=== PATIENT | male | born 1940 | race Caucasian/White ===

== ENCOUNTER 2020-12-19 13:30 | Inpatient (IN) | payer OTHER, BC ==
[~2020-12-19] VITALS: Ht 188 cm; Wt 93.0 kg
[~2020-12-19 13:30] MED LIST: ACETAMINOPHEN325 M1 PO; ACYCLOVIR 400400 MG PO; ASPIR 8181 MG PO; BENTYL 20 MG TA20 M1 PO; BRILINTA90 MG PO; CARAFATE1 GM PO; CEFDINIR300 MG PO; CENTRUM SILVER1 EAC4 PO; CLONAZEPAM 0.50.5 M1 PO; COZAAR 25 MG TA25 M1 PO; DILAUDID 2 MG TA2 MG PO; EFFIENT10 MG PO; ELIQUIS2.5 MG PO; ELIQUIS5 MG PO; GABAPENTIN 100100 MG PO; HEPARIN SO1000 UNIT/ IVPUSH; IBU800 MG PO; KLONOPIN0.5 MG PO; LEVAQUIN 750 M750 MG PO; LIPITOR 20 MG T20 M1 PO; LISINOPRIL20 MG PO; MELATONIN3 MG PO; MELATONIN5 MG SUBLING; METOPROLOL TART25 MG PO; MUCINEX600 MG PO; NEURONTIN 300M300 M2 PO; NORCO 5-325 TA1 EACH PO; NORVASC10 MG PO; OMEPRAZOLE40 MG PO; OXYCODONE HCL 55 MG PO; PRILOSEC OTC20 MG PO; PRILOSEC20 MG PO; PROBIOTIC1 EAC2 PO; SINGULAIR 10 MG10 M1 PO; TRAMADOL 50 MG50 MG PO; VENTOLIN HFA 1818 GM INH; VITAMIN B-12500 MCG PO
[2020-12-19 18:29] VITALS: BP 126/63
--- NOTE | 2020-12-19 19:20 | NUR ---
PT A DIRECT ADMIT FROM [facility]. ADMISSION HX AND ASSESSMENT COMPLETED. PT ALERT AND ORIENTED. VSS. REPORT HAVING SOME CHEST DISCOMFORT. SR ON TELE. SEEN BY DR. KEMP. NEW ORDERS NOTED. NO CONCERNS AT THIS TIME.
[2020-12-19 19:47] LABS: HEMOGLOBIN 12.9 gm/dL (14.0-18.0); MCH 30.5 pg (26.0-34.0); MCV 92.3 fL (80.0-100.0); RBC 4.23 mil/uL (4.50-6.00); RDW 14.5 % (10.5-14.5); WBC 4.2 thou/uL (4.0-11.0)
[2020-12-19 19:52] LABS: INR 1.1
[2020-12-19 20:06] LABS: CHOLESTEROL 128 mg/dL (<200); HDL CHOLESTEROL 39 mg/dL (>40); LDL CHOLESTEROL 71 mg/dL (<100); TC:HDL 3.3 Ratio (Not establshd); TRIGLYCERIDE 92 mg/dL (<150); VLDL 18 mg/dL (<40)
[2020-12-19 20:24] LABS: SERUM ASSESSMENT Clear
[2020-12-19 20:30] VITALS: BP 135/61
[2020-12-19 22:20] LABS: FOLIC ACID 39.2 ng/mL (8.6-58.9)
[2020-12-20 05:10] VITALS: BP 140/72
[2020-12-20 05:30] LABS: CALCIUM 8.9 mg/dL (8.5-10.1); CREATININE 1.1 mg/dL (0.7-1.3); POTASSIUM 3.7 mmol/L (3.5-5.1)
[2020-12-20 05:44] LABS: HEMATOCRIT 38.4 % (42.0-52.0); HEMOGLOBIN 12.7 gm/dL (14.0-18.0); MCH 30.4 pg (26.0-34.0); RBC 4.17 mil/uL (4.50-6.00); RDW 14.2 % (10.5-14.5); WBC 4.5 thou/uL (4.0-11.0)
--- NOTE | 2020-12-20 07:22 | NUR ---
PER CHART REVIEW, PT. IS SCHEDULED FOR CABG Sunday12/21/2020. WILL WAIT TO EVALUTE PT. UNTIL AFTER ORDERS RECEIVED POST CABG.
[2020-12-20 07:48] VITALS: BP 138/66
--- NOTE | 2020-12-20 09:04 | NUR ---
ON HEPARIN GTT,COMPLAIN OF CHEST PRESSURE,NITRO SL GIVEN.VERBALIZED LITTLE RELIEF.POC CONTINUED.
[2020-12-20] MEDS ORDERED: LIPITOR40 MG PO (10:20)
[2020-12-20 11:26] VITALS: BP 135/64
--- NOTE | 2020-12-20 13:59 | EKG ---
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 : 1940 Requested By: Urbano Huber Order Number: [id number] : Rodrigo [place] Measurements Intervals [place] Rate: 68 P: 54 [place]: 184 QRS: -22 QRSD: 103 T: 162 QT: 407 QTc: 433 Interpretive Statements Sinus rhythm Borderline left axis deviation Low voltage, precordial leads Probable anteroseptal infarct, old Nonspecific T abnormalities, lateral leads No previous ECG available for comparison Electronically Signed On 12-20-2020 13:59:21 CLAMP TRUCK DRIVER by Rodrigo Wilhelm [email or web address] <ELECTRONICALLY SIGNED> By: Rodrigo Wilhelm MD, [facility] 12/20/20 1359 1106 05 Rodrigo Wilhelm MD, FACC /EPI
[2020-12-20 15:50] VITALS: BP 154/72
[2020-12-20 19:42] VITALS: BP 148/74
[2020-12-20 19:45] VITALS: BP 155/87
[2020-12-21] VITALS (35 sets, daily range): BP systolic 98–135; BP diastolic 51–71
--- NOTE | 2020-12-21 10:13 | NUR ---
met with patient last evening. Patient resides in home with . All needs on one level. Patient reports with eye injection and cannot drive for some time. [facility] to have CABG today. Patient lives in [place]. 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 Son lives in [place] and dtr lives in [facility]. reviewed HH care. casemgt following for dc planning. Patient has no established PCP. Reports he sees Dr Aguiar on outpatient basis.
[2020-12-21 12:31] LABS: HEMATOCRIT 26.7 % (42.0-52.0); MCH 30.7 pg (26.0-34.0); MCHC 33.6 g/dL (28.0-37.0); MCV 91.3 fL (80.0-100.0); RBC 2.92 mil/uL (4.50-6.00); RDW 13.8 % (10.5-14.5); WBC 7.6 thou/uL (4.0-11.0)
[2020-12-21 12:44] LABS: FIBRINOGEN 131.9 mg/dL (210-360); INR 1.5; PROTIME 15.5 Seconds (9.3-11.4)
[2020-12-21 12:47] LABS: APTT 27.8 Seconds (24.5-32.8)
[2020-12-21 13:13] LABS: POC BE 3 mmol/L (-2.0 to +3.0); POC GLUCOSE 115 mg/dL (70-99); POC HCO3 27.6 mmol/L (22.0-26.0); POC HEMOGLOBIN 12.2 g/dL (14.0-18.0); POC POTASSIUM 3.7 mmol/L (3.5-5.1); POC SODIUM 140 mmol/L (136-145); POC pH 7.426 (7.360-7.450)
[2020-12-21 13:13] LABS: POC BE 1 mmol/L (-2.0 to +3.0); POC CA IONIZED 4.9 mg/dL (4.5-5.3); POC GLUCOSE 147 mg/dL (70-99); POC HCO3 26.9 mmol/L (22.0-26.0); POC HEMOGLOBIN 11.9 g/dL (14.0-18.0); POC SODIUM 139 mmol/L (136-145); POC pCO2 49.3 mmHg (35.0-45.0); POC pH 7.345 (7.360-7.450)
[2020-12-21 13:14] LABS: POC BE -3 mmol/L (-2.0 to +3.0); POC CA IONIZED 4.7 mg/dL (4.5-5.3); POC GLUCOSE 130 mg/dL (70-99); POC HCO3 22.2 mmol/L (22.0-26.0); POC HEMOGLOBIN 9.9 g/dL (14.0-18.0); POC POTASSIUM 3.9 mmol/L (3.5-5.1); POC SODIUM 141 mmol/L (136-145); POC pCO2 36.6 mmHg (35.0-45.0); POC pH 7.391 (7.360-7.450)
[2020-12-21 13:14] LABS: POC BE 1 mmol/L (-2.0 to +3.0); POC CA IONIZED 4.6 mg/dL (4.5-5.3); POC GLUCOSE 159 mg/dL (70-99); POC HCO3 25.3 mmol/L (22.0-26.0); POC HEMOGLOBIN 9.2 g/dL (14.0-18.0); POC POTASSIUM 4.2 mmol/L (3.5-5.1); POC SODIUM 140 mmol/L (136-145); POC pCO2 40.6 mmHg (35.0-45.0); POC pH 7.403 (7.360-7.450)
[2020-12-21 13:14] LABS: POC BE -2 mmol/L (-2.0 to +3.0); POC CA IONIZED 5.5 mg/dL (4.5-5.3); POC GLUCOSE 136 mg/dL (70-99); POC HCO3 22.7 mmol/L (22.0-26.0); POC HEMOGLOBIN 9.2 g/dL (14.0-18.0); POC POTASSIUM 3.7 mmol/L (3.5-5.1); POC SODIUM 140 mmol/L (136-145); POC pCO2 37.1 mmHg (35.0-45.0); POC pH 7.396 (7.360-7.450)
[2020-12-21 13:14] LABS: POC BE 0 mmol/L (-2.0 to +3.0); POC CA IONIZED 4.5 mg/dL (4.5-5.3); POC GLUCOSE 149 mg/dL (70-99); POC HEMOGLOBIN 9.9 g/dL (14.0-18.0); POC POTASSIUM 4.6 mmol/L (3.5-5.1); POC SODIUM 140 mmol/L (136-145); POC pH 7.414 (7.360-7.450)
[2020-12-21 13:14] LABS: POC BE 0 mmol/L (-2.0 to +3.0); POC CA IONIZED 4.3 mg/dL (4.5-5.3); POC GLUCOSE 152 mg/dL (70-99); POC HCO3 24.7 mmol/L (22.0-26.0); POC HEMOGLOBIN 9.2 g/dL (14.0-18.0); POC POTASSIUM 4.5 mmol/L (3.5-5.1); POC SODIUM 138 mmol/L (136-145); POC pCO2 36.8 mmHg (35.0-45.0); POC pH 7.434 (7.360-7.450)
[2020-12-21 13:14] LABS: POC BE 1 mmol/L (-2.0 to +3.0); POC CA IONIZED 4.6 mg/dL (4.5-5.3); POC GLUCOSE 167 mg/dL (70-99); POC HCO3 25.2 mmol/L (22.0-26.0); POC HEMOGLOBIN 9.5 g/dL (14.0-18.0); POC POTASSIUM 4.4 mmol/L (3.5-5.1); POC SODIUM 140 mmol/L (136-145); POC pCO2 39.3 mmHg (35.0-45.0); POC pH 7.416 (7.360-7.450)
[2020-12-21 14:03] LABS: HEMATOCRIT 30.3 % (42.0-52.0); HEMOGLOBIN 10.1 gm/dL (14.0-18.0); MCH 30.9 pg (26.0-34.0); MCHC 33.4 g/dL (28.0-37.0); MCV 92.6 fL (80.0-100.0); RBC 3.27 mil/uL (4.50-6.00); WBC 9.1 thou/uL (4.0-11.0)
[2020-12-21 14:08] LABS: CALCIUM 8.8 mg/dL (8.5-10.1); CREATININE 0.9 mg/dL (0.7-1.3); POTASSIUM 3.9 mmol/L (3.5-5.1)
[2020-12-21 14:09] LABS: MAGNESIUM 2.4 mg/dL (1.8-2.4)
[2020-12-21 14:18] LABS: APTT 26.1 Seconds (24.5-32.8); INR 1.2; PROTIME 11.9 Seconds (9.3-11.4)
[2020-12-21 14:26] LABS: BE(vivo) -4.3 mmol/L (-2 to +3); HCO3 21.8 mmol/L (22.0-26.0); PCO2 43.8 mmHg (35.0-45.0); PO2 126.8 mmHg (80.0-100.0); sO2 98.3 % (92.0-98.0)
[2020-12-21 14:27] LABS: pH 7.314 (7.360-7.450)
--- NOTE | 2020-12-21 16:35 | NUR ---
PT ARRIVED FROM OR TO ICU AT 1353 ACCOMPANIED BY NURSING STAFF, ANESTHESIOLOGISTS, RETORT FIREMAN, ANURAG MESSINA AND .PT WAS SEDATED ON 20MCG/KG/MIN PROPOFOL. LUDY DURAN UPDATED ON PT CONDITION AT 1530. PT LUDY WAS GIVEN ICU PHONE NUMBER AND PT PRIVACY CODE AND VISITATION POLIACY. SEDATION OFF SINCE 1445. PT STILL DROWSY AND NOT FOLLOWING ANY COMMANDS YET. PT ON AMIODARONE GTT. CONTINUE TO MONITOR.
[2020-12-21 19:21] LABS: BE(vivo) -7.4 mmol/L (-2 to +3); HCO3 17.5 mmol/L (22.0-26.0); PCO2 33.6 mmHg (35.0-45.0); PO2 81.1 mmHg (80.0-100.0); pH 7.335 (7.360-7.450); sO2 95.4 % (92.0-98.0)
[2020-12-22] VITALS (26 sets, daily range): BP systolic 81–126; BP diastolic 30–75
[2020-12-22 06:25] LABS: HEMOGLOBIN 9.7 gm/dL (14.0-18.0); MCH 30.9 pg (26.0-34.0); MCHC 33.6 g/dL (28.0-37.0); MCV 92.1 fL (80.0-100.0); RBC 3.15 mil/uL (4.50-6.00); RDW 14.1 % (10.5-14.5); WBC 9.2 thou/uL (4.0-11.0)
[2020-12-22 06:40] LABS: CALCIUM 8.6 mg/dL (8.5-10.1); CREATININE 1.2 mg/dL (0.7-1.3); MAGNESIUM 2.3 mg/dL (1.8-2.4); POTASSIUM 4.2 mmol/L (3.5-5.1)
--- NOTE | 2020-12-22 07:19 | EKG ---
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: AMY : 1940 Requested By: Tarik Vance Order Number: [id number] MD: Rodrigo Wilhelm Measurements Intervals [place] Rate: 85 P: 59 [place]: 191 QRS: -25 QRSD: 108 T: 77 QT: 452 QTc: 538 Interpretive Statements Sinus rhythm Inferior infarct, old Minimal ST elevation, anterior leads Prolonged QT interval Compared to ECG 12/21/2020 15:16:38 ST (T wave) deviation now present T-wave abnormality no longer present Myocardial infarct finding still present Electronically Signed On 12-22-2020 7:19:22 AFTER SCHOOL COUNSELOR by Rodrigo Wilhelm [email or web address] <ELECTRONICALLY SIGNED> By: Rodrigo Wilhelm MD, FAC 12/22/20718 0 0 Rodrigo Wilhelm MD, [facility] /EPI
--- NOTE | 2020-12-22 07:19 | EKG ---
[address] [place] [address] ELECTROCARDIOGRAM REPORT Name: FARZANA DURAN Room #: 249-P [facility] IN M.R.#: [id number] Admission: 12/19/20 Attend Phys: Nomi Angelo MD Discharge: Date of : 42 Report #: [id number] [facility] Test Date: 2020-12-21 Test Time: 15:16:38 Pat Name: FARZANA DURAN Department: Room: 249 Gender: M Licensing Director: Rani SANCHEZ : 1940 Requested By: Tarik Vance Order Number: [id number] MD: Rodrigo Wilhelm Measurements Intervals [place] Rate: 89 P: -8 WV: 146 QRS: -19 QRSD: 108 T: 93 QT: 417 QTc: 508 Interpretive Statements Sinus rhythm Borderline left axis deviation Anterior infarct, old Nonspecific T abnormalities, lateral leads Prolonged QT interval Compared to ECG 12/20/2020 11:06:51 Prolonged QT interval now present Myocardial infarct finding still present T-wave abnormality still present Electronically Signed On 12-22-2020 7:19:04 CONCRETE ANALYST by Rodrigo Wilhelm [email or web address] <ELECTRONICALLY SIGNED> By: Rodrigo Wilhelm MD, FACC 12/22/20 0719 1516 1516 Rodrigo Wilhelm MD, [facility] /EPI
--- NOTE | 2020-12-22 08:22 | NUR ---
SEE [employer] FOR ASSESSMENTS. PT STATES LOW PAIN THRESHOLD. PAIN MED GIVEN ORDERED. MOST PAIN AT CHEST TUBE INSERTION SITE. HEMODYNAMICS WNL-CARDIZEM GTT TO KEEP MAP <160. UO WNL. SM AIR LEAK PRESENT WITH RT CT, LS-DIMINISHED. FAIR COUGH EFFORT. TARAH PO FLUIDS. BS HIGH UPON CHECK LAST NIGHT. STARTED INSULIN GTT. CONT TO MONITOR, PROGRESSING TOWARD GOALS
--- NOTE | 2020-12-22 11:33 | NUR ---
Received RD consult for diet education. S/P CABG x5 on 12/21. Diet has advanced. Note elevated BG levels, no hx DM, ? related to stress of surgery. Recommend further accuchecks and A1C. Will educate on appropriate diet once pt more stable and has transferred out of ICU.
--- NOTE | 2020-12-22 17:57 | NUR ---
ALERT AND ORIENTED, FORGETFUL AT TIMES. C/O PAIN IN THE LEFT SIDE OF THE CHEST WHICH HE STATES HE'S HAD FOR A LONG TIME AND DOCTORS ARE AWARE. VITALS STABLE. UP TO THE CHAIR WITH P.T AND O.T. A-LINE AND SWAN DC'D EARLIER PER ORDER. PACER WIRES CAPPED. CHEST TUBES NOTED WITH AIR LEAK AND TIDALING. PATIENT WENT TO AFIB THIS AFTERNOON WHILE WORKING WITH P.T. SHORTLY THEREAFER DR. BLACK CAME TO ROUND AND WAS NOTIFIED AND ORDERED DIGOXIN. PATIENT'S SPOUSE CAME BY TO VISIT PATIENT AND WAS UPDATED. PATIENT PROGRESSING TOWARDS POC GOALS.
[2020-12-23] VITALS (21 sets, daily range): BP systolic 97–144; BP diastolic 39–76
[2020-12-23 05:30] LABS: HEMATOCRIT 31.6 % (42.0-52.0); HEMOGLOBIN 10.5 gm/dL (14.0-18.0); MCH 30.8 pg (26.0-34.0); MCHC 33.3 g/dL (28.0-37.0); MCV 92.7 fL (80.0-100.0); RBC 3.41 mil/uL (4.50-6.00); RDW 14.3 % (10.5-14.5); WBC 10.3 thou/uL (4.0-11.0)
[2020-12-23 05:55] LABS: CREATININE 1.2 mg/dL (0.7-1.3); POTASSIUM 4.3 mmol/L (3.5-5.1)
--- NOTE | 2020-12-23 07:48 | EKG ---
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 : 1940 Requested By: Randell Aguiar Order Number: [id number] MD: Sonu Boss Measurements Intervals [place] Rate: 87 P: -67 [place]: 166 QRS: -28 QRSD: 99 T: 152 QT: 359 QTc: 432 Interpretive Statements Sinus rhythm Borderline left axis deviation Abnormal T, consider ischemia, lateral leads Compared to ECG 12/22/2020 07:01:36 Ectopic atrial rhythm now present T-wave abnormality now present Electronically Signed On 12-23-2020 7:48:14 RN TRANSPLANT by Sonu Boss [email or web address] <ELECTRONICALLY SIGNED> By: Sonu Boss MD, [facility] 12/23/2048 8 8 Sonu Boss MD, [facility] /EPI
--- NOTE | 2020-12-23 13:55 | NUR ---
S/W PT'S IN ROOM TO REVIEW DC OPTIONS OF ACUTE REHAB, HOME HEALTH AND OUTPT THERAPY/CARDIAC REHAB AT [facility]. IS HOPEFUL HE WILL BE DOING WELL ENOUGH FOR EITHER HH OR OUTPT THERAPIES. PT MAKING SLOW PROGRESS WITH THERAPIES.
--- NOTE | 2020-12-23 15:15 | NUR ---
ALERT AND ORIENTED AND VITALS STABLE. C/O PAIN ON LEFT CHEST AND LEFT SHOULDER. PRN MEDS ADMINISTERED AND HEATING PAD PROVIDED. UP TO THE CHAIR AND WALKED AROUND THE NURSING STATION A COUPLE OF TIMES WITH P.T. CHEST TUBES TO SUCTION AND TIDALING AND AIR LEAK NOTED. PACER WIRES CAPPED. INTRODUCER AND JAUREGUI DC'D AND PATIENT IS VODING PER URINAL W/O DIFFICULTY. TOLERATING DIET W/O NAUSEA. SPOUSE IN TO SEE PATIENT FOR A WHILE. ORDERS FOR CCU IN [facility].
--- NOTE | 2020-12-23 17:25 | NUR ---
PATIENT WOKE UP THIS AFTERNOON CONFUSED AND UNABLE TO REMEMBER HOW HE GOT HERE I TRIED TO REORIENT HIM MULTIPLE TIMES. STATED HE DID NOT HAVE PAIN BUT WAS UNABLE TO REMEMBER HOW HE GOT TO THE HOSPITAL. ABLE TO ANSWER ORIENTATION QNS CORRECTLY.
--- NOTE | 2020-12-23 19:20 | NUR ---
PT EXTREMELY CONFUSED & ANXIOUS. PT ASKING SAME ?'S OVER & OVER-WHAT HAPPENED? DID ANYONE GET HURT?DOES NOT REMEMBER ANY EVENTS OF LAST 3 DAYS.MUCH TIME SPENT W PT,TRYING TO REORIENT & REASSURE PT HE WAS BEING TAKEN CARE OF, HE WAS SAFE,ETC. PT CALLED HIS ON THE PHONE.
--- NOTE | 2020-12-23 23:21 | NUR ---
ASSUMED PT CARE AT 1900. VSS. PT CONFUSED, NEED FREQUENT REORIENTATION. PT REFUSED TO TAKE NOC MEDS. PT'S NOTIFIED, PT CALLED PT TO GET HIM TO TAKE THE MEDS. PT REFUSED STILL. AT 2199. PT GOT INCREASINGLY CONFUSED AND JOSEMANUEL FRANKLIN GOT UP FROM CHAIR, TIPPED HIS CHEST TUBE OVER AND REFUSED TO SIT BACK DOWN. PT STATED " YOU CANT HOLD ME HERE AGAINST MY WILL, THIS IS THE LAW IN THE [facility], I WANT TO GO HOME, I'M GOING TO ANYWAY" RN ATTEMPTED TO REORIENT PT TO SITUATION BUT THAT WAS TO NO AVAIL. RN CALLED SECURITY, AND MOBILE UI DEVELOPER. DR ALCALA ALSO INFORMED OF PT'S STATUS. DR ALCALA ORDERED HALDOL FOR AGITATION PRN. REPORT CALLED TO LINDSAY LOPEZ ON 2N AT 2223. PT FINALLY SAT IN HIS CHAIR AFTER STANDING FOR 20 MINUTES AND REFUSING CARE. PT EXITED ICU AT 2229; WAS WHEELED OUT BY TWILA MOBILE UI DEVELOPER. RN NOTIFIED PT LUDY OF ROOM CHANGE AT 2327.
--- NOTE | 2020-12-24 03:53 | NUR ---
PT RECEIVED FROM ICU ABOUT 2200. PT ORIENTED ON ARRIVAL WITH INTERMITENT CONFUSION. HALDOL 1 MG GIVEN. PT ALSO REPORTS INCISION SITE CHEST PAIN, RATING 8/10, TYLENOL PRN GIVEN. PT PREFERRED TO SLEEP IN THE CHAIR. NOT PATIENT HAD AN ACCESS PORT THAT HAD NOT BEEN ACCESSED YET. RN FROM ED ON USING TO ACCESS THE PORT. CHEST TUBE ATRIUMS ALSO CHANGED. AIR BUBBLE LEAK NOTED . PT DENIES ANY SOB/DISTRESS OTHER THAN PAIN. NO OTHER CONCERNS. WILL CONTINUE TO MONITOR.
[2020-12-24 03:54] VITALS: BP 119/54
--- NOTE | 2020-12-24 07:45 | EKG ---
[place] [address] [facility] [address] [place] [address] ELECTROCARDIOGRAM REPORT Name: FARZANA DURAN Room #: 216- ADM IN M.R.#: [id number] Admission: 12/19/20 Attend Phys: Nomi Angelo MD Discharge: Date of : 42 Report #: [id number] 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 : 1940 Requested By: Tarik Vance Order Number: [id number] MD: Sonu Boss Measurements Intervals [place] Rate: 68 P: 42 MS: 200 QRS: -24 QRSD: 104 T: 152 QT: 392 QTc: 417 Interpretive Statements Sinus rhythm Borderline left axis deviation Abnormal R-wave progression, early transition Repol abnrm suggests ischemia, anterolateral Compared to ECG 12/23/2020 07:19:32 No significant change was found Electronically Signed On 12-24-2020 7:45:28 REAGENT TENDER HELPER by Sonu Boss [email or web address] <ELECTRONICALLY SIGNED> By: Sonu Boss MD, [facility] 12/24/20 0745 6 6 Sonu Boss MD, [facility] /EPI
[2020-12-24 07:55] VITALS: BP 118/65
[2020-12-24 12:07] VITALS: BP 116/46
[2020-12-24 16:18] VITALS: BP 117/53
--- NOTE | 2020-12-24 18:33 | NUR ---
ASSUMED CARE AT CHANGE OF SHIFT. PAIN MANAGED WITH PRN TYLENOL AND REPOSITIONING. CHEST TUBE REMAIN IN PLACE WITH 55CC OUTPUT MARKED ON CHEST TUBE. UP WITH MIN ASSIST TODAY. WALKED WITH THERAPY, AND REHAB NURSE AROUND UNIT. BM TODAY. EDUCATED TO DRINK THE SUPPLEMENT. NO PLANS TO DC OVER WEEKEND. FALL PRECAUTION IN PLACE. CALLS FOR ASSISTANCE.
[2020-12-24 20:00] VITALS: BP 105/48
[2020-12-25 00:05] VITALS: BP 103/45
[2020-12-25 03:18] LABS: HEMATOCRIT 28.9 % (42.0-52.0); HEMOGLOBIN 9.5 gm/dL (14.0-18.0); MCH 30.6 pg (26.0-34.0); MCHC 32.8 g/dL (28.0-37.0); MCV 93.2 fL (80.0-100.0); RBC 3.1 mil/uL (4.50-6.00); RDW 13.8 % (10.5-14.5); WBC 7.5 thou/uL (4.0-11.0)
[2020-12-25 03:31] LABS: CALCIUM 8.8 mg/dL (8.5-10.1); POTASSIUM 4.4 mmol/L (3.5-5.1)
--- NOTE | 2020-12-25 03:40 | NUR ---
PT POST OP DAY 4 S/P POST CABG X 5. PT ALERT AND ORIENTED. VITALS STABLE, NO FEVER. ENCOURAGED TO USE IS. NO EPISODES OF DELIRIUM OR COMATIVENESS, PT AO X 4. PT C/O INCISION SITE PAIN, WORSENESS WHEN LAYING IN BED, BUT SOME HOW ALLEVIATED WHILE IN THE CHAIR. TYLENOL PRN GIVEN. PT DENIES ANY OTHER CONCERNS. ENCOURAGED TO USE IS. WILL CONTINUE TO MONITOR.
[2020-12-25 05:05] VITALS: BP 123/53
[2020-12-25 08:00] VITALS: BP 116/53
[2020-12-25 16:40] VITALS: BP 125/49
--- NOTE | 2020-12-25 18:48 | NUR ---
ASSUMED CARE AT CHANGE OF SHIFT. ALERTX4, PAIN MANAGED WITH PRN MEDS,AND REPOSITIONING, ENCOURAGE IS AND SUPPLEMENTS. DR ALCALA CHANGED CHEST TUBE TO WATER SEAL, SEE [facility] NURSE ORDER REGARDING CHEST TUBE CARE. WALKED LAIRD ONE TIME. REMINDED PT TO USE LEGS TO SIT/STAND. CALLS FOR ASSISTANCE. PREFERS TO BE IN CHAIR WITH PILLOWS UNDER ARMS AND LEGS. NO PLANS TO DC TOMORROW.
[2020-12-25 19:27] VITALS: BP 133/49
[2020-12-26 03:06] LABS: GLYCOHEMOGLOBIN (HGB A1C) 6.5 % (4.8-5.6)
[2020-12-26 04:45] VITALS: BP 126/49; BP 126/50
--- NOTE | 2020-12-26 05:39 | NUR ---
PT ALERT ALERT AND ORIENTED. VITALS STABLE. NO NAUSEA OR VOMITING. INCISION SITE DRESSINGS INTACT. REPORTS LESS DISCOMFORT OVERNIGHT, PATIENT SLEPT IN HIS CHAIR. O2 SATs STABLE ON ROOM IR. NO C/O SOB WITH CHEST TUBES ON WATER SEAL. WILL CONTINUE TO MONITOR
--- NOTE | 2020-12-26 07:59 | HC ---
[facility] [place] [address] CONSULTATION Name: FARZANA DURAN Room #: 216-P [facility] IN M.R.#: [id number] Admission: 12/19/20 Attend Phys: Nomi Angelo MD Discharge: Date of : 42 Report #: [id number] THIS REPORT FOR: cc: FAM - No family physician/PCP FAM - No family physician/PCP Urbano Huber MD ~ DATE OF SERVICE: 12/20/2020 We were asked to see the patient by Dr. Aguiar. HISTORY OF PRESENT ILLNESS: The patient is a 80-year-old transferred from [place] to this institution for coronary bypass surgery. The patient states he has had 2-1/2 months of angina that became severe at rest, leading to emergency admission. Cardiac catheterization done on Sunday showed a 90% distal left main as well as circumflex and marginal stenoses. The right coronary also appears to have proximal narrowing, but it was not well engaged. PAST HISTORY: Significant for hypertension. The patient denies diabetes mellitus. 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 Since hospitalization, the patient has been maintained on heparin. Cardiac echo shows hypokinesis of the distal septum and apex with an ejection fraction of 45%-50%. ALLERGIES: None known. MEDICATIONS: IV heparin currently, metoprolol, acetaminophen, and Mucinex. PAST MEDICAL HISTORY: Non-Hodgkin's lymphoma approximately 1 year ago. REVIEW OF SYSTEMS: I agree with the review of systems as dictated by Dr. Angelo. MUSCULOSKELETAL: The patient states he is still having some right knee pain despite two joint replacements. PHYSICAL EXAMINATION: GENERAL: The patient is sitting in bed, seemingly comfortable. VITAL SIGNS: Temperature 36.7, heart rate 72, blood pressure 135/64, respiratory rate 20, O2 sat 95 on room air. HEENT: No scleral icterus, no arcus, normocephalic. NECK: No mass, no bruit audible. CHEST: Clear to auscultation, somewhat distant. HEART: Rhythm regular. Tones are somewhat distant. No murmur. ABDOMEN: Soft. EXTREMITIES: No clubbing, cyanosis or edema. [facility] [address] [place] [address] CONSULTATION Name: FARZANA DURAN Room #: 216-P [facility] IN ..#: [id number] Admission: 12/19/20 Attend Phys: Nomi Angelo MD Discharge: Date of : 42 Report #: [id number] VASCULAR: 2+ popliteal pulses bilaterally. No obvious saphenous vein problems. SKIN: No rash or infection. NEUROLOGIC: No motor or sensory dysfunction. MUSCULOSKELETAL: No obvious bone or joint asymmetry or deformity. PSYCHIATRIC: Oriented x 3 and shows insight into problems and is a pleasant fellow. ASSESSMENT AND PLAN: The patient is severe left main and 3-vessel coronary artery disease. I have recommended coronary artery bypass surgery. Risks and details of this were discussed. These include, but are not limited to, bleeding, infection, anesthesia risks, heart and lung problems, stroke and . Options and alternatives were reviewed. The patient understands all of this and he wishes to proceed. We will continue IV heparin until surgery in the morning. Thank you for the consult. <ELECTRONICALLY SIGNED> By: Urbano Huber MD 12/26/20 0759 1629 1934 Urbano Huber MD /nt
--- NOTE | 2020-12-26 07:59 | O ---
[facility] [place] [address] OPERATIVE REPORT Name: FARZANA DURAN Room #: 216-P ADM IN M.R.#: [id number] Admission: 12/19/20 Attend Phys: Nomi Angelo MD Discharge: Date of : 42 Report #: [id number] THIS REPORT FOR: cc: FAM - No family physician/PCP FAM - No family physician/PCP Urbano Huber MD ~ PREOPERATIVE DIAGNOSIS: Coronary artery disease. POSTOPERATIVE DIAGNOSIS: Coronary artery disease. OPERATIONS: Coronary artery bypass x 5 including left internal mammary artery to left anterior descending artery, saphenous vein to ramus, first marginal and saphenous vein to posterior descending branch of the right coronary and posterolateral branch of the distal circumflex and endoscopic harvest, left greater saphenous vein. SURGEON: Urbano Huber MD FAST FOOD MANAGER: ANURAG Fernández. ANESTHESIA: General. INDICATIONS: The patient is a 80-year-old with unstable angina. Catheterization demonstrates a 95% left main and proximal circumflex lesions. Subtotal occlusion of the large marginal and 90+ percent ostial right coronary stenoses. Left ventricular function is satisfactory by echo with an ejection fraction of 45-50%. FINDINGS AND TECHNIQUE: After general anesthesia was established, saphenous vein was harvested using an endoscopic approach and prepared for use as a conduit. Exposure was obtained through median sternotomy. Left internal mammary artery was harvested from chest wall. Pericardial well was made. Cannulation sutures were placed. Heparin was given. Aorta was cannulated. Right atrium was cannulated. Cardioplegia needle was positioned in the aortic root. Retrograde cardioplegic catheter was placed in coronary sinus. Cardiopulmonary bypass was established. The aorta was cross clamped. Antegrade and retrograde cardioplegia were given. Ice was poured in the pericardial well. The heart was stopped. During electromechanical arrest, the distal anastomoses were performed and end-to-side anastomosis was made between vein and the posterior lateral branch, which appeared to be a distal circumflex branch. This was a 1.3 mm vessel. Cold cardioplegia was given. The same segment of vein was sewn in end-to-side fashion to the posterior descending artery, which was the distal branch of the [facility] [address] [place] [address] OPERATIVE REPORT Name: FARZANA DURAN Room #: 216-P [facility] IN .R.#: [id number] Admission: 12/19/20 Attend Phys: Nomi Angelo MD Discharge: Date of : 42 Report #: [id number] right coronary. This was a 1.5 mm vessel. Cold cardioplegia was given. A separate segment of vein was sewn in end-to-side fashion to large marginal artery. This was a 1.6 mm vessel and was subtotal occlusion on the angiogram. Cold cardioplegia was given. The same segment of vein was sewn in atyt-gt-[id number] fashion to ramus intermedius, which was a 1.6 mm vessel. Cold cardioplegia was given. Left internal mammary artery was sewn in end-to-side fashion to left anterior descending artery. LAD was a 1.7 mm vessel. Anastomosis was checked with the temperature technique and the Doppler to establish flow. Cold cardioplegia was given. Two proximal anastomoses were performed and these were complete, warm retrograde cardioplegia was given followed by warm continuous blood to the coronary sinus. When this infusion was complete, the crossclamp was removed, de-airing maneuvers were performed. The anastomoses were inspected and found to be satisfactory. As the patient warmed, nice cardiac activity resumed, chest tubes and pacing wires were placed, a marker was placed around the proximal anastomoses. When the patient was warm, he was weaned from cardiopulmonary bypass. Venous cannula was removed. Protamine was given. The aortic cannula was removed. Flows were measured in the bypass grafts. When hemostasis was satisfactory, chest was irrigated with antibiotic solution and closed in the usual fashion. The patient was taken to the Intensive Care Unit in good condition having tolerated the procedure well. All counts reported as correct. <ELECTRONICALLY SIGNED> By: Urbano Huber MD 12/26/20 0759 36 55 Urbano Huber MD /nt
[2020-12-26 08:25] VITALS: BP 112/52
[2020-12-26 11:30] VITALS: BP 115/48
--- NOTE | 2020-12-26 16:12 | NUR ---
ASSUMED CARE AT CHANGE OF SHIFT. ALERT TODAY, REPORTS FEELING BETTER. WALKED THE HALLS WITH THERAPY AND PRIMARY RN. TREATED SHOULDER PAIN WITH LIDOCAIN PATCH, PRN TYLENOL, AND HEATING PAD. CHEST XRARY COMPLETED SEE NOTE. CALLS FOR ASSISTANCE. PERSONAL ITEMS IN REACH. CHEST TUBE REMAINS IN TACT UNTIL SMALLAIR LEAK RESOLVES.
[2020-12-26 16:24] VITALS: BP 105/51
[2020-12-26 20:15] VITALS: BP 125/65
[2020-12-27 04:45] VITALS: BP 118/60
[2020-12-27 07:23] VITALS: BP 124/69
--- NOTE | 2020-12-27 07:41 | EKG ---
[facility] [place] [place] [address] ELECTROCARDIOGRAM REPORT Name: FARZANA DURAN Room #: 216- ADM IN M.R.#: [id number] Admission: 12/19/20 Attend Phys: Nomi Angelo MD Discharge: Date of : 42 Report #: [id number] [facility] Test Date: 2020-12-25 Test Time: 09:45:55 Pat Name: FARZANA DURAN Department: Room: 216 Gender: M Assistant Cross Country Coach: : 1940 Requested By: Tarik Vance Order Number: [id number] MD: Sonu Boss Measurements Intervals [place] Rate: 72 P: 75 [place]: 203 QRS: -8 QRSD: 108 T: 143 QT: 423 QTc: 463 Interpretive Statements Sinus rhythm Nonspecific ST and T wave abnormality Cannot rule out inferior infarct, age indeterminate Compared to ECG 12/24/2020 07:27:40 No significant change was found Electronically Signed On 12-27-2020 7:41:15 HEALTHCARE SPECIALIST by Sonu Boss [email or web address] <ELECTRONICALLY SIGNED> By: Sonu Boss MD, [facility] 12/27/20 0741 4 4 Sonu Boss MD, [facility] /EPI
[2020-12-27 11:33] VITALS: BP 107/53
--- NOTE | 2020-12-27 15:05 | NUR ---
DR. ALCALA AND SIDDHARTH REMOVING CHEST TUBES. STILL, TO INTERVENTIONAL FOR CHEST TUBE PLACEMENT. HAS WALKED IN THE HALLS WITH PT. DENIES CP, SOA. FALL PRECAUTIONS IN PLACE.
--- NOTE | 2020-12-27 15:44 | NUR ---
Spoke with therapy patient appropriate for home with HH. Attempted to sp with patient. He has air leak and transfrred to procedure of chest tube. Patienet returned to floor. He is sleepy. Will discuss home health care at another time.
[2020-12-27 16:03] VITALS: BP 117/61
[2020-12-27 20:45] VITALS: BP 123/50
[2020-12-28] VITALS (8 sets, daily range): BP systolic 95–167; BP diastolic 47–80
--- NOTE | 2020-12-28 04:16 | NUR ---
CARE ASSUMED 1900, PT WITH CHEST TUBE TO THE RIGHT LUNG DUE TO IDENTIFIED PNEUMOTHORAX YESTERDAY ON X-RAY. C/O OF PAIN, AND UNABLE TO TAKE DEEP BREATHS. PT PARTIALLY CONTROLLED BY PRN TYLENOL. PT PREFERRED TO SLEEP IN HIS CHAIR. VITALS STABLE, DENIES NAUSEA OR VOMITING. 02 2L NC APPLIED FOR COMFORT. PT IS SR WITH 1 AVB . WILL CONTINUE TO MONITOR AND FOLLOW POC.
--- NOTE | 2020-12-28 10:36 | NUR ---
pt called out asking if he needed to put his oxygen back on, he states he unclamped his chest tube but is wondering if he is needing oxygen. pt states he is feeling better and not very short of breath at the moment. this rn listened to pt lungs, still just diminished on the right side. pt spo2 is 95% on room air.
--- NOTE | 2020-12-28 11:46 | NUR ---
PT WALKED HALLS WITH THERAPY AND DID NOT COMPLAIN OF ANY SHORTNESS OF BREATH. PT SPO2 WNL ON RA. PT SITTING IN CHAIR, CHEST TUBE CLAMPED, PT STATES THAT HE IS HAVING A BURNING SENSATION IN HIS EPIGASTRIC AREA, CLAIMS THIS HAPPENED LAST NIGHT, ASKED HIM WHAT HELPED TO RESOLVE THE BURNING, HE SAID NOTHING HELPED. TRIED TO OFFER PT A FAMOTIDINE THAT IS ON THE EMAR, HE DENIED, STATED IT CAN'T BE GI RELATED BECAUSE HE HAS NEVER HAD HEARTBURN BEFORE AND HE IS A WEEK OUT AND HASN'T HAD ANY ISSUES, WILL NOT EVEN ATTEMPT TO TRY FAMOTIDINE. PT STATES IT IS NOT PAIN AND IT IS NOT RELATED TO BREATHING AND LOCATION IS NO WHERE NEAR CHEST TUBE. PT SPO2 94%, LUNGS CLEAR, BREATH SOUNDS AUDIBLE. PT VERY ANXIOUS APPEARING.
--- NOTE | 2020-12-28 16:29 | NUR ---
Spoke with patient and CTS. Patient will dc home with HH at [place]. Gave patient list of HH agencies that service his area. he has no preference. Will inquire into HH agencies.
--- NOTE | 2020-12-28 17:08 | NUR ---
FAXED REFERRAL TO [facility]. CONFIRMED WITH JAEL AT [facility] THAT THEY RECEIVED AND CAN FOLLOW PATIENT WHEN DISCHARGED. SPINE SURGEON VERIFIED PRIMARY CARE PHYSICIAN TO FOLLOW WILL BE EVENS ALCALA MD. [phone]. [facility]: P [phone]; FAX [phone]
--- NOTE | 2020-12-28 18:05 | NUR ---
PT FEELING MUCH BETTER THIS EVENING. PT HAD CT REMOVED EARLIER AND WAS ABLE TO TAKE A NAP.
[2020-12-29 04:18] VITALS: BP 125/55
[2020-12-29 07:20] VITALS: BP 103/54
--- NOTE | 2020-12-29 07:56 | NUR ---
SLEPT UP IN CHAIR THROUGHOUT NOC. DENIES NEED OF PAIN MEDICATION. WORKING ON GOALS FOR NOC. PROGRESSING TOWARDS DISCHARGE GOALS. DENIES FEELING SHORT OF AIR. UP TO BATHROOM WITH STANDBY ASSIST. CONTINUE TO ASSES.
[2020-12-29] MEDS ORDERED: ASPIR 8181 MG PO (08:21)
[2020-12-29] MEDS ORDERED: TYLENOL EXTRA500 MG PO (08:21)
[2020-12-29] MEDS ORDERED: PACERONE 200 M200 M1 PO (08:21)
[2020-12-29] MEDS ORDERED: FERREX 150 PLU1 EAC1 PO (08:21)
[2020-12-29 12:25] VITALS: BP 103/54
--- NOTE | 2020-12-29 14:18 | NUR ---
PT DISCHARGING TODAY TO HOME WITH [facility] FAXED DC ORDERS/SUMMARY RECEIVED COFIRMATION AND SPOKE WITH JAEL IN INTAKE THEY WILL ARRANGE VISITS WITH PT.
--- NOTE | 2020-12-29 15:33 | NUR ---
patient discharged prior to rec phone number for home health care. Called and sp with who reports they do not want. He is getting around so well want to go immediately to outpatient therapy. Gave [facility] number to cancel if she chooses.
--- NOTE | 2020-12-29 19:49 | NUR ---
ASSUMED CARE OF PT AT SHIFT [facility]ANGE. ASSESSMENT CHARTED. MEDS GIVEN PER JAN. PT A&OX4, NO C/O PAIN OR DISTRESS. PT EXCITED TO GO HOME. DISCHARGE ORDERS AND INSTRUCTIONS COMPLETE. IV AND TELE DC'D. PT TAKEN TO ER ENTRANCE VIA WHEELCHAIR TO WAITING FAMILY IN CAR.
[2020-12-29 19:50] VITALS: BP 103/54
== END 2020-12-29 13:25 | disposition home health service (06) | DRG 235 ==
LOC: 2N 13:30 → TBA 12-21 07:43 → ICU 12-21 14:33 → 2N 12-23 22:33
PROVIDERS: Internal Medicine Cardiovascular Disease; Physician Assistant; Surgery Vascular Surgery; ADMIT Hospitalist; ATTEND Hospitalist
PROC: 5A1221Z Performance of Cardiac Output, Continuous (ICD-10-PCS; principal; 2020-12-21)
PROC: 021309W Bypass Coronary Artery, Four or More Arteries from Aorta with Autologous Venous Tissue, Open Approach (ICD-10-PCS; principal; 2020-12-21)
PROC: 02100Z9 Bypass Coronary Artery, One Artery from Left Internal Mammary, Open Approach (ICD-10-PCS; principal; 2020-12-21)
PROC: 06BQ4ZZ Excision of Left Saphenous Vein, Percutaneous Endoscopic Approach (ICD-10-PCS; principal; 2020-12-21)
PROC: 30233R1 Transfusion of Nonautologous Platelets into Peripheral Vein, Percutaneous Approach (ICD-10-PCS; principal; 2020-12-21)
PROC: 0W9930Z Drainage of Right Pleural Cavity with Drainage Device, Percutaneous Approach (ICD-10-PCS; 2020-12-27)
DX: I25.10 Atherosclerotic heart disease of native coronary artery without angina pectoris (principal); G93.41 Metabolic encephalopathy; J93.83 Other pneumothorax; D62 Acute posthemorrhagic anemia; I48.91 Unspecified atrial fibrillation; E78.5 Hyperlipidemia, unspecified; I10 Essential (primary) hypertension; R53.81 Other malaise; E11.9 Type 2 diabetes mellitus without complications; Z20.822 Contact with and (suspected) exposure to COVID-19; Z96.653 Presence of artificial knee joint, bilateral; Z79.899 Other long term (current) drug therapy; Z79.82 Long term (current) use of aspirin; Z95.5 Presence of coronary angioplasty implant and graft; Z90.49 Acquired absence of other specified parts of digestive tract; Z86.711 Personal history of pulmonary embolism; Z85.72 Personal history of non-Hodgkin lymphomas; Z86.73 Personal history of transient ischemic attack (TIA), and cerebral infarction without residual deficits
CPT/HCPCS: 10078; 10081; 47000; 47001; 47002; 47297; 47382; 50010; 50011; 50249; 50409; 50456; 50498; 50668; 51301; 52131; 52287; 52314; 54118; 56455; 56524; 56525; 56526; 56527; 56528; 56531; 56534; 56668; 56719; 56760; 56898; 57093; 57116; 57167; 62110; 62950; 83006